=== PATIENT | male | born 1975 | race Caucasian/White ===

== ENCOUNTER 2022-11-15 09:02 | Emergency (ER) | payer MEDICAID ==
[~2022-11-15] VITALS: Ht 170.2 cm; Wt 59.0 kg
[2022-11-15 09:15] VITALS: BP 142/96; PULSE 83; RESP 18; TEMP 97.1; O2SAT 96
[2022-11-15] MEDS ORDERED: KETOROLAC 30 MG/ML VIAL IVP ONE (09:30)
[2022-11-15] MEDS ORDERED: NACL 0.9% 1,000 ML IV SCH (09:30)
[2022-11-15 09:49] LABS: BASOPHILS % (AUTO) 0.6 % (0.0-2.0); EOSINOPHILS # (AUTO) 0.1 K/uL (0-0.4); HEMATOCRIT 36.5 % (36-52); HEMOGLOBIN 12.2 g/dL (12.0-18.0); LYMPHOCYTES # (AUTO) 0.9 K/uL (2.0-11.5); LYMPHOCYTES % (AUTO) 15.9 % (20.5-51.1); MEAN CORPUSCULAR HEMOGLOBIN 29 pg (27-31); MEAN CORPUSCULAR HGB CONC 34 g/dL (33-37); MEAN CORPUSCULAR VOLUME 85.3 fL (80-94); MONOCYTES # (AUTO) 0.9 K/uL (0.8-1.0); MONOCYTES % (AUTO) 14.8 % (1.7-9.3); NEUTROPHILS # (AUTO) 3.9 K/uL (1.8-7.7); NEUTROPHILS % (AUTO) 67.7 % (42.2-75.2); PLATELET COUNT (AUTO) 366 K/uL (140-450); RED BLOOD CELL COUNT(AUTO) 4.28 MIL/uL (4.20-6.10); RED CELL DISTRIBUTION WIDTH 13.3 % (11.6-13.7); WHITE BLOOD COUNT (AUTO) 5.8 K/uL (4.8-10.8)
[2022-11-15 10:15] VITALS: O2SAT 96
[2022-11-15 10:20] LABS: ANION GAP 6.7 (8-16); CALCIUM 8.3 mg/dL (8.5-10.1); CARBON DIOXIDE 30.1 mmol/L (21-32); CREATININE 0.9 mg/dL (0.6-1.3); POTASSIUM 3.8 mmol/L (3.5-5.1); TOTAL BILIRUBIN 0.5 mg/dL (0.0-1.0); TOTAL PROTEIN, SERUM 6.7 g/dL (6.4-8.2)
[2022-11-15] MEDS ORDERED: MORPHINE SULFATE 4 MG/ML SYR IVP ONE (11:45)
[2022-11-15] MEDS ORDERED: IBUP-2213 PO (12:09)
[2022-11-15] MEDS ORDERED: HYDR-5191 PO (12:09)
[2022-11-15 12:13] VITALS: BP 142/96; PULSE 83; RESP 18; TEMP 97.1; O2SAT 96
== END 2022-11-15 12:13 | disposition home or self-care (01) ==
LOC: MED 09:02
DX: K42.9 Umbilical hernia without obstruction or gangrene (principal); F17.200 Nicotine dependence, unspecified, uncomplicated; F12.90 Cannabis use, unspecified, uncomplicated; F15.90 Other stimulant use, unspecified, uncomplicated; Z79.899 Other long term (current) drug therapy; Z79.1 Long term (current) use of non-steroidal anti-inflammatories (NSAID)
CPT/HCPCS: 36415; 71045; 74176; 80053; 83690; 85025; 96361; 96374; 99285; J1885; J7030; 81002